=== PATIENT | female | born 1950 | race Caucasian/White ===

== ENCOUNTER 2024-03-14 10:08 | Outpatient (CLI) | payer MEDICARE, OTHER | END 2024-03-14 10:09 | disposition home or self-care (01) | LOC: CSHMAMMO 10:08 | PROVIDERS: ATTEND Family Medicine | DX: Z12.31 Encounter for screening mammogram for malignant neoplasm of breast (principal); Z78.0 Asymptomatic menopausal state; Z80.3 Family history of malignant neoplasm of breast | CPT/HCPCS: 77063; 77067; 77080 ==